=== PATIENT | male | born 1975 | race Caucasian/White ===

== ENCOUNTER 2019-07-28 15:18 | Emergency (ER) | payer SELFPAY ==
[~2019-07-28] VITALS: Ht 180.3 cm; Wt 95.2 kg
[2019-07-28] MEDS ORDERED: PENICILLIN V P500 MG PO (15:51)
[2019-07-28] MEDS ORDERED: NORCO 7.5-3251 EACH PO (15:51)
== END 2019-07-28 16:03 | disposition home or self-care (01) ==
LOC: ED 15:18
DX: K04.7 Periapical abscess without sinus (principal)
CPT/HCPCS: 99282; A9270